=== PATIENT | male | born 1970 | race Caucasian/White ===

== ENCOUNTER 2021-06-11 07:46 | Outpatient (CLI) | payer OTHER ==
[~2021-06-11 07:46] MED LIST: GLIMEPIRIDE4 MG; JANUMET 50-1,01 EACH; NEURONTIN800 MG; RIOMET500 MG/5 M; VALSARTAN320 MG; [UNRECOGNIZED DRUG - OTHER]
== END 2021-06-11 07:48 | disposition home or self-care (01) ==
LOC: NUCLEAR 07:46
PROVIDERS: ATTEND General Practice
DX: L89.314 Pressure ulcer of right buttock, stage 4 (principal)
CPT/HCPCS: 78315; A9503